=== PATIENT | female | born 1980 | race Caucasian/White ===

== ENCOUNTER 2022-01-12 09:07 | Outpatient (REF) | payer OTHER, SELFPAY ==
[2022-01-15 14:45] LABS: HPV mRNA E6/E7 rflx Not Detected (Not Detected)
== END 2022-01-12 09:08 | disposition home or self-care (01) ==
LOC: HO.LAB 09:07
PROVIDERS: PCP Internal Medicine; Visit Provider Obstetrics & Gynecology
DX: Z01.419 Encounter for gynecological examination (general) (routine) without abnormal findings (principal); Z11.51 Encounter for screening for human papillomavirus (HPV)
CPT/HCPCS: 87624; 88142

== ENCOUNTER → 2022-02-17 12:10 | Outpatient (BNVA) | payer OTHER, SELFPAY | PROVIDERS: Visit Provider Obstetrics & Gynecology | DX: Z13.89 Encounter for screening for other disorder (principal) ==

== ENCOUNTER 2022-04-11 10:38 | Outpatient (REF) | payer OTHER, SELFPAY ==
[2022-04-11 15:17] LABS: CT PCR NOT DETECTED (Not Detect.); NG PCR NOT DETECTED (Not Detect.)
== END 2022-04-11 10:39 | disposition home or self-care (01) ==
LOC: HO.LAB 10:38
PROVIDERS: Visit Provider Obstetrics & Gynecology
DX: Z30.433 Encounter for removal and reinsertion of intrauterine contraceptive device (principal)
CPT/HCPCS: 58300; 58301; 87491; 87591

== ENCOUNTER → 2022-05-10 08:15 | Outpatient (BNVA) | payer OTHER, SELFPAY | PROVIDERS: PCP Internal Medicine; Visit Provider Obstetrics & Gynecology | DX: Z32.02 Encounter for pregnancy test, result negative (principal); Z30.431 Encounter for routine checking of intrauterine contraceptive device | CPT/HCPCS: 81025 ==

== ENCOUNTER → 2023-01-17 09:12 | Outpatient (BNVA) | payer OTHER, SELFPAY | PROVIDERS: PCP Internal Medicine; Visit Provider Obstetrics & Gynecology | DX: Z13.89 Encounter for screening for other disorder (principal) ==

== ENCOUNTER 2023-03-14 07:42 | Outpatient (REF) | payer OTHER, SELFPAY ==
--- NOTE | ~2023-03-14 | MM_ITS ---
EXAMINATION: MM SCREENING DIGITAL BREAST TOMOSYNTHESIS, BILATERAL CLINICAL INFORMATION: Screening. Asymptomatic. Prior history reduction mammoplasty. The lifetime risk of breast cancer based on the Tyrer-Cuzick Model is 13%. COMPARISON: Mammography: 01/18/2018 ([place]) TECHNIQUE: Digital breast tomosynthesis is performed in both the craniocaudal and mediolateral oblique views along with computer-aided detection (CAD). Synthesized 2D images are generated from the tomosynthesis. FINDINGS: There are scattered areas of fibroglandular density (ACR BI-RADS breast composition Category b). There are no significant masses, abnormal calcifications, or other abnormalities. Parenchymal pattern is similar to prior outside exam. No developing density or architectural abnormality. The axilla are unremarkable. MM/MM tomosynthesis screening BI IMPRESSION: No mammographic evidence of malignancy. ASSESSMENT: BI-RADS 1: Negative RECOMMENDATION: Routine annual mammography screening. This patient's information was entered into a reminder system with a target due date for their next mammogram.
== END 2023-03-14 07:43 | disposition home or self-care (01) ==
LOC: HO.MAMMO 07:42
PROVIDERS: PCP Internal Medicine; Visit Provider Obstetrics & Gynecology
DX: Z12.31 Encounter for screening mammogram for malignant neoplasm of breast (principal)
CPT/HCPCS: 77063; 77067

== ENCOUNTER 2023-07-11 09:05 | Outpatient (AMB) | payer OTHER, SELFPAY ==
[2023-07-11 09:19] VITALS: BP 122/76; BMI 49.6
--- NOTE | 2023-07-11 09:19 | MHC.OFFVIS ---
Intake Vital Signs 07/11/23 09:19 Height 5 ft 4 in Weight 288 lb 12.889 oz BMI 49.6 BP 122/76 Intake Visit Reasons: Vaginal irritation Operations Superintendent Required: No Information Interpreted: non-clinical & clinical Prestressed Concrete Laborer: Prestressed Concrete Laborer Present (Velma ALMEIDA) Accompanied by: Self / Same As Patient Allergies No Known Allergies Allergy (Verified 07/11/23 09:20) Is last menstrual period known: No (mirena) HPI HPI Comments History of Present Illness Details Patient is here today for a vaginal and external itching. She reports recent rounds of antibiotics for dental work. She tried an OTC crema, which helped a little. She also reports itching in her creases. Using Azo's daily and pH balanced soaps, rinses well and voids after intimacy. [facility] Medical History Dysplasia of cervix, low grade (ISRAEL 1) Graves disease Hypothyroid Surgical History Hx of breast reduction, elective Social History Alcohol intake: current Alcohol intake frequency: holidays/special occasions only Patient Tobacco Use Status: Never used Tobacco Gender identity: Female Female Reproductive History Menstrual Age of Menarche: 12 Review of Systems Const All systems reviewed & are unremarkable except as noted in HPI and below Physical Exam Vital Signs: Last Vital Signs BP 122/76 07/11/23 09:19 BMI result Body Mass Index 49.6 Const General: cooperative, healthy appearing and no acute distress Orientation/consciousness: patient oriented x3 GI Inspection: Yes normal to inspection and Yes other (pannus fold clear) Palpation (GI): Soft to palpation Rectal Exam - Female: visual inspection normal General: Yes bladder normal to palpation External Female Exam: normal appearance of the urethra Speculum Exam - Vagina: normal appearance of the vagina, normal palpation and normal vaginal discharge Speculum Exam - Cervix: normal appearance of the cervix and normal palpation Bimanual exam- vagina & uterus: normal bimanual exam, normal palpation, uterine size normal, bladder normal to palpation, normal palpation, uterine shape normal, non-tender and other (IUD strings present) Bimanual Exam- Adnexa, other: normal adnexae Neuro General: patient oriented x3 Assessment & Plan Assessment & Plan (1) Vaginitis: Code(s): N76.0 - Acute vaginitis Plan Discussed: Skin care. Clean with water only, no soaps, air dry, loose cotton clothes, no intimacy until well healed. Await test results. Sign up for the patient postal. Follow up prn/ annual exam. Orders: Orders CT NG by PCR Today N89.8 - Other specified noninflammatory disorders of vagina Bacterial Vaginosis Panel Today N89.8 - Other specified noninflammatory disorders of vagina Coding Level of Care Code Est Pt Level 3 (22732) Diagnoses Vaginitis N76.0
== END 2023-07-11 09:37 | disposition home or self-care (01) ==
PROVIDERS: PCP Internal Medicine; Visit Provider Advanced Practice Midwife
DX: N76.0 Acute vaginitis (principal)
CPT/HCPCS: 99213

== ENCOUNTER 2023-07-11 09:05 | Outpatient (REF) | payer OTHER, SELFPAY ==
[2023-07-11 13:36] LABS: CT PCR NOT DETECTED (Not Detect.); NG PCR NOT DETECTED (Not Detect.)
[2023-07-12 13:40] LABS: BV Int Neg Control Negative (Negative); BV Int Pos Control Positive (Positive)
== END 2023-07-11 09:06 | disposition home or self-care (01) ==
LOC: HO.LNP 09:05
PROVIDERS: PCP Internal Medicine; Visit Provider Advanced Practice Midwife
DX: N76.0 Acute vaginitis (principal)
CPT/HCPCS: 0353U; 87480; 87510; 87660

== ENCOUNTER 2024-03-07 09:50 | Outpatient (AMB) | payer OTHER, SELFPAY ==
--- NOTE | 2024-03-07 09:59 | MHC.OFFVIS ---
Vital Signs 03/07/24 10:03 Height 5 ft 4 in Weight 260 lb BMI 44.6 BP 122/74 Intake Visit Reasons: RN X RAY annual exam/DO NOT RS Intake Note: painful intercourse German Teacher Required: No Information Interpreted: non-clinical & clinical Senior Instructor: Senior Instructor Present (Velma Sarkar JUAN PABLO) Accompanied by: Self / Same As Patient Allergies No Known Allergies Allergy (Verified 03/07/24 10:04) Is last menstrual period known: No (mirena) HPI Comments Details: Presenting for annual exam. Complaining of right-sided dyspareunia on and off no associated urinary or GI symptoms , no vaginal discharge Last Pap/HPV was negative in 01/07 preceded by ISRAEL 1 in 2020 Last Mammogram was BI-RADS 1 in 03/10 [facility] Medical History Dysplasia of cervix, low grade (ISRAEL 1) Hypothyroid Graves disease Surgical History Hx of breast reduction, elective Family History Father Diabetes Stroke Mother COVID Other HTN (hypertension) Social History Household Members: Spouse and Children Housing: House Alcohol intake: current Alcohol intake frequency: holidays/special occasions only Patient Tobacco Use Status: Never used Tobacco Current occupational status: employed Current occupation: Resepcionist Sexual orientation: Straight/Heterosexual Gender identity: Female Female Reproductive History Menstrual Age of Menarche: 12 control method: progestin IUCD Total pregnancies: 4 Full term: 2 Number of Living Children: 2 Ab induced: 1 Ab spontaneous: 1 Date of last pap smear: 01/13/22 Date of Mammogram: 03/14/23 Review of Systems Const All systems reviewed & are unremarkable except as noted in HPI and below Card Reports as per HPI Resp Reports as per HPI GI Reports as per HPI and Reports no additional complaints Reports as per HPI Physical Exam Vital Signs: Last Vital Signs BP 122/74 03/07/24 10:03 BMI result Body Mass Index 44.6 Const General: cooperative, healthy appearing and comfortable Chest Chest palpation & inspection: normal inspection of the chest and normal palpation of entire chest wall Breast/axilla inspection: normal inspection of the breasts and normal inspection of the axillae Breast/axilla palpation: normal palpation of the breasts, normal palpation of the axillae and no axillary lymphadenopathy Resp Effort & Inspection: normal respiratory effort Auscultation: clear to auscultation bilaterally Percussion: percussion normal Cardio Palpation: normal PMI Rate: regular rate Rhythm: regular rhythm Heart sounds: no murmurs and no rubs Peripheral pulses: Peripheral pulses 2+ throughout GI Inspection: Yes normal to inspection Palpation (GI): Soft to palpation, nontender, no guarding, not rigid and No hepatosplenomegaly present Percussion: Yes normal to percussion Auscultation: normal bowel sounds Rectal Exam - Female: deferred General: Yes bladder normal to palpation External Female Exam: No lesion Speculum Exam - Vagina: normal appearance of the vagina, normal palpation, normal vaginal discharge and not erythematous Speculum Exam - Cervix: normal appearance of the cervix and normal palpation Bimanual exam- vagina & uterus: normal bimanual exam, normal palpation, uterine size normal, bladder normal to palpation, consistency normal and normal palpation Bimanual Exam- Adnexa, other: normal adnexae, no masses and no tenderness Results AMB Test Urine AMB Test Urine Negative Last Edit by Velma Sarkar CMA on 03/07/24 10:42 Assessment & Plan Assessment & Plan (1) Well woman exam: Comment: 2020 ISRAEL 1 followed by negative co testing 01/07 Code(s): Z01.419 - Encounter for gynecological examination (general) (routine) without abnormal findings Category: Medical Plan: Cotesting not indicated this year. Mammogram scheduled on 03/26/2024. Counseled the patient about the recommended dietary allowance of 1000 mg of Calcium & 600 IU of vitamin D. The patient was instructed to perform monthly self-breast exams and to schedule an annual exam in a year; All questions answered and the patient verbalized understanding. Instructed the patient to schedule annual exam in a year (2) Dyspareunia, female: Code(s): N94.10 - Unspecified dyspareunia Category: Medical Plan: Urine dip and test done in the office was negative. GC/CT with BV panel collected, ultrasound ordered. Instructions given the patient to schedule an ultrasound follow-up appointment within 2 weeks. Orders: Orders CT NG by PCR Today Z01.419 - Encounter for gynecological examination (general) (routine) without abnormal findings AMB Urinalysis Dipstick Today R10.2 - Pelvic and perineal pain Bacterial Vaginosis Panel Today Z01.419 - Encounter for gynecological examination (general) (routine) without abnormal findings AMB HCG Urine Test Today Z32.02 - Encounter for test, result negative Coding Level of Care Code Est Pt Prev Care 40-64y(95112) Diagnoses Well woman exam Z01.419 Dyspareunia, female N94.10
[2024-03-07 10:03] VITALS: BP 122/74; BMI 44.6
== END 2024-03-07 11:07 | disposition home or self-care (01) ==
PROVIDERS: Visit Provider Obstetrics & Gynecology
DX: Z01.419 Encounter for gynecological examination (general) (routine) without abnormal findings (principal); N94.10 Unspecified dyspareunia; R10.2 Pelvic and perineal pain; Z32.02 Encounter for pregnancy test, result negative
CPT/HCPCS: 99396

== ENCOUNTER 2024-03-07 09:50 | Outpatient (REF) | payer OTHER, SELFPAY ==
[2024-03-07 17:49] LABS: Bacterial Vaginosis PCR NEGATIVE (Negative); Candida Group PCR DETECTED (Not Detect); Candida glab krusei PCR NOT DETECTED (Not Detect); Trichomonas vaginalis PCR NOT DETECTED (Not Detect)
[2024-03-07 18:31] LABS: CT PCR NOT DETECTED (Not Detect.); NG PCR NOT DETECTED (Not Detect.)
== END 2024-03-07 09:51 | disposition home or self-care (01) ==
LOC: HO.LNP 09:50
PROVIDERS: Visit Provider Obstetrics & Gynecology
DX: Z32.02 Encounter for pregnancy test, result negative (principal); N94.10 Unspecified dyspareunia; R10.2 Pelvic and perineal pain
CPT/HCPCS: 0352U; 0353U; 81002; 81025

== ENCOUNTER 2024-03-26 07:26 | Outpatient (REF) | payer OTHER, SELFPAY | END 2024-03-26 07:27 | disposition home or self-care (01) | LOC: HO.MAMMO 07:26 | PROVIDERS: PCP Internal Medicine; Visit Provider Internal Medicine | DX: Z12.31 Encounter for screening mammogram for malignant neoplasm of breast (principal) | CPT/HCPCS: 77063; 77067 ==

== ENCOUNTER → 2024-03-26 07:30 | Outpatient (BNV) | payer OTHER, SELFPAY | PROVIDERS: PCP Internal Medicine; Visit Provider Radiology Diagnostic Radiology | DX: Z12.31 Encounter for screening mammogram for malignant neoplasm of breast (principal) | CPT/HCPCS: 77063; 77067 ==

== ENCOUNTER 2024-03-26 13:12 | Outpatient (REF) | payer OTHER, SELFPAY ==
--- NOTE | ~2024-03-26 | US_ITS ---
EXAMINATION: US PELVIS CLINICAL INFORMATION: Pelvic pain, right lower quadrant pain, unknown last menstrual period, IUD. COMPARISON: None available. TECHNIQUE: Ultrasound of the pelvis is performed using both transabdominal and transvaginal transducers along with Doppler. Transvaginal imaging is performed due to inadequate visualization transabdominally. FINDINGS: Uterus is anteverted and measures 7.1 x 3.0 cm. This exam is inadequate for evaluating IUD position as the IUD is poorly visualized due to uterine positioning and bowel gas. Limited visualization of the endometrium. Imaged segment of the endometrium with thickness of 0.3 cm. No significant free fluid. Nabothian cysts. Trace amount of fluid within the cervix. Right ovary measures 4.4 x 1.8 x 1.3 cm, volume 5.4 mm and is unremarkable. Left ovary measures 3.2 x 2.1 x 2.7 cm, volume 90.5 mL. Multiple left ovarian cysts, largest 1.7 cm, are likely physiologic. There is no specific indication for additional imaging at this time. US/US pelvic and transvaginal IMPRESSION: 1. IUD is poorly visualized due to uterine positioning and bowel gas. 2. Limited visualization of the endometrium. Imaged segment of the endometrium with thickness of 0.3 cm. 3. Multiple left ovarian cysts, largest 1.7 cm, are likely physiologic. There is no specific indication for additional imaging at this time.
== END 2024-03-26 13:13 | disposition home or self-care (01) ==
LOC: HO.US 13:12
PROVIDERS: PCP Internal Medicine; Visit Provider Obstetrics & Gynecology
DX: R10.2 Pelvic and perineal pain (principal)
CPT/HCPCS: 76830; 76856

== ENCOUNTER 2024-06-13 09:32 | Outpatient (AMB) | payer OTHER, SELFPAY ==
--- NOTE | 2024-06-13 09:45 | MHC.OFFVIS ---
Vital Signs 06/13/24 09:46 Height 5 ft 4 in Weight 257 lb 15.053 oz BMI 44.3 Intake Visit Reasons: Ultra sound follow up Allergies No Known Allergies Allergy (Verified 03/07/24 10:04) HPI Comments Details: Presenting for follow-up regarding her pelvic pain. The patient is doing well. The following workup was done so far: GC/CT negative. Last visit urine test was negative. Last visit urine dip. Pelvic ultrasound showed the following: Uterus is anteverted and measures 7.1 x 3.0 cm. This exam is inadequate for evaluating IUD position as the IUD is poorly visualized due to uterine positioning and bowel gas. Limited visualization of the endometrium. Imaged segment of the endometrium with thickness of 0.3 cm. No significant free fluid. Nabothian cysts. Trace amount of fluid within the cervix. Right ovary measures 4.4 x 1.8 x 1.3 cm, volume 5.4 mm and is unremarkable. Left ovary measures 3.2 x 2.1 x 2.7 cm, volume 90.5 mL. Multiple left ovarian cysts, largest 1.7 cm, are likely physiologic. There is no specific indication for additional imaging at this time. [facility] Medical History Dysplasia of cervix, low grade (ISRAEL 1) Hypothyroid Graves disease Surgical History Hx of breast reduction, elective Family History Father Diabetes Stroke Mother COVID Other HTN (hypertension) Social History Household Members: Spouse and Children Housing: House Alcohol intake: current Alcohol intake frequency: holidays/special occasions only Patient Tobacco Use Status: Never used Tobacco Current occupational status: employed Current occupation: Resepcionist Sexual orientation: Straight/Heterosexual Gender identity: Female Female Reproductive History Menstrual Age of Menarche: 12 Review of Systems Const All systems reviewed & are unremarkable except as noted in HPI and below Reports as per HPI and Reports no additional complaints GI Reports no additional complaints Reports no additional complaints Physical Exam Vital Signs: BMI result Body Mass Index 44.3 Assessment & Plan Assessment & Plan (1) Dyspareunia, female: Code(s): N94.10 - Unspecified dyspareunia Category: Medical Plan: Discussed with the patient the results of the ultrasound showing poor visualization of IUD position and endometrium, recommended repeat pelvic ultrasound to confirm appropriate IUD positioned in the endometrial cavity and no evidence of any other pathology. Pelvic ultrasound ordered. Instructions given the patient to schedule an ultrasound and a follow-up appointment. All questions answered, the patient verbalized understanding Orders: Orders US pelvic and transvaginal Today N94.10 - Unspecified dyspareunia Coding Level of Care Code Est Pt Level 3 (84932) Diagnoses Dyspareunia, female N94.10
[2024-06-13 09:46] VITALS: BMI 44.3
== END 2024-06-13 09:52 | disposition home or self-care (01) ==
LOC: HO.HWS 09:32
PROVIDERS: PCP Internal Medicine; Visit Provider Obstetrics & Gynecology
DX: N94.10 Unspecified dyspareunia (principal)
CPT/HCPCS: 99213

== ENCOUNTER → 2024-06-13 09:32 | Outpatient (BNVA) | payer OTHER, SELFPAY | PROVIDERS: PCP Internal Medicine; Visit Provider Obstetrics & Gynecology ==

== ENCOUNTER 2024-06-19 14:06 | Outpatient (REF) | payer OTHER, SELFPAY ==
--- NOTE | ~2024-06-19 | US_ITS ---
EXAMINATION:US PELVIS TRANSABDOMINAL AND TRANSVAGINAL CLINICAL INFORMATION: N94.10 - Unspecified dyspareunia COMPARISON: No priors available. LMP: IUD FINDINGS: UTERUS: The uterus is anteverted. Size: 7.7 x 3.6 x 5.1 cm. Uterine mass: There is no uterine mass. Cervix: There are nabothian cysts otherwise Grossly unremarkable. Endometrium: No ultrasound evidence of endometrial lesion. endometrial thickness measures 0.25 cm there is an IUD in place. might have been displaced, with its stump perforating the myometrium raising concern for malpositioning. Difficult to visualize, could not obtain 3-D image. ADNEXA: Normal Right ovary: Normal in size. Left ovary: Normal in size. Doppler exam: Normal Doppler flow identified in both ovaries. FREE FLUID: Trace amount of free fluid. OTHER FINDINGS: None US/US pelvic and transvaginal IMPRESSION: * There is an IUD in place, might have been displaced, with its arms appear to be perforating into the myometrium raising concern for malpositioning. Difficult to visualize, could not obtain 3-D image. Recommend WELDING SYSTEMS AND EQUIPMENT REPAIRER evaluation, consider replacement and/or correlation with follow-up cross-sectional imaging, if not performed follow-up ultrasound in 6 weeks for reassessment. * Exam otherwise normal. Electronically signed by: Antonio Veronica MD 06/19/2024 05:02 PM EDT
== END 2024-06-19 14:07 | disposition home or self-care (01) ==
LOC: HO.HMGCX 14:06
PROVIDERS: PCP Internal Medicine; Visit Provider Obstetrics & Gynecology
DX: N94.10 Unspecified dyspareunia (principal)
CPT/HCPCS: 76830; 76856

== ENCOUNTER 2024-06-25 09:44 | Outpatient (AMB) | payer OTHER, SELFPAY ==
--- NOTE | 2024-06-25 09:45 | MHC.OFFVIS ---
Vital Signs 06/25/24 09:55 Height 5 ft 4 in Weight 257 lb 15.053 oz BMI 44.3 Intake Visit Reasons: Mirena removal and insertion Supervising Bailiff Required: No Information Interpreted: non-clinical & clinical Facility Attendant: Facility Attendant Present (Velma ALMEIDA) Accompanied by: Self / Same As Patient Allergies No Known Allergies Allergy (Verified 06/25/24 10:03) Is last menstrual period known: No (mirena) HPI Comments Details: Presenting for ultrasound follow-up which showed the following: IMPRESSION: * There is an IUD in place, might have been displaced, with its arms appear to be perforating into the myometrium raising concern for malpositioning. Difficult to visualize, could not obtain 3-D image. Recommend AVIONICS SYSTEMS ENGINEER evaluation, consider replacement and/or correlation with follow-up cross-sectional imaging, if not performed follow-up ultrasound in 6 weeks for reassessment. * Exam otherwise normal. [facility] Medical History Dysplasia of cervix, low grade (ISRAEL 1) Hypothyroid Graves disease Surgical History Hx of breast reduction, elective Family History Father Diabetes Stroke Mother COVID Other HTN (hypertension) Social History Household Members: Spouse and Children Housing: House Alcohol intake: current Alcohol intake frequency: holidays/special occasions only Patient Tobacco Use Status: Never used Tobacco Current occupational status: employed Current occupation: Resepcionist Sexual orientation: Straight/Heterosexual Gender identity: Female Female Reproductive History Menstrual Age of Menarche: 12 Review of Systems Const All systems reviewed & are unremarkable except as noted in HPI and below Physical Exam Vital Signs: BMI result Body Mass Index 44.3 General: Yes no CVA tenderness External Female Exam: normal external appearance and normal appearance of the urethra Speculum Exam - Vagina: normal appearance of the vagina, normal palpation, no lesions and no masses Speculum Exam - Cervix: normal appearance of the cervix, normal palpation, no lesions, no masses, nontender and Other cervical findings present (IUD thread in place) Bimanual exam- vagina & uterus: normal bimanual exam, normal palpation, uterine size normal, normal palpation, uterine shape normal, No Cervical tenderness present and non-tender Bimanual Exam- Adnexa, other: normal adnexae Back/Spine/Pelvis Back: no CVA tenderness Office Procedures IUD Insert/Removal Details Details: The patient is presenting for IUD removal and IUD reinsertion. Her last menstrual period was within the last 5 days, Urine test was done in the office and was negative; All the contraindications were excluded. The following possible complications were discussed with the patient: Intrauterine , Ectopic , Sepsis, Pelvic Infection, Irregular Bleeding and Amenorrhea, Perforation, Expulsion, Ovarian Cysts, Breast Cancer. The following adverse effects were discussed with the patient: alteration of menstrual bleeding pattern, including: unscheduled uterine bleeding decreased uterine bleeding increased scheduled uterine bleeding female genital tract bleeding ,amenorrhea , genital discharge , vulvovaginitis , breast pain , benign ovarian cyst and associated complications , dysmenorrhea , Gastrointestinal disorders abdominal/pelvic pain, headache/migraine , back pain , acne , depression Alternative options were discussed with the patient including but not limited: control pills, patch, NuvaRing, Depo-medroxyprogesterone acetate, Nexplanon, copper IUD, sterilization, vasectomy, others The procedure was explained in detail to patient , at the end patient signed the informed consent obtained. Alternative options were discussed with the patient The patient signed the consent and agreed with the plan; all questions answered. Urine test was done in the office and was negative Preop dx: Requesting IUD removal and Reinsertion Op: IUD removal and Mirena insertion Post op dx: same EBL= 10 cc Procedure: The patient was put in the dorsal lithotomy position a speculum was inserted in the vagina the IUD thread identified. Using a Andie clamp the thread was grasped and the IUD pulled out with no complications. A no touch technique was used throughout the procedure. A speculum was placed into vagina and cervix was cleaned with betadine). A tenaculum was placed. A plastic sound was advanced through the external and internal os until it reached the fundus of the uterus, the depth was 8 cm. The sound was then withdrawn. The IUD was loaded in a sterile manner and advanced into position. The string was visualized and cut to 3 cm. Tenaculum site hemostatic. All instruments removed from vagina. Patient tolerated the procedure well. NO complications were noted. Patient was instructed to call for fever over 100.4, significant pain unrelieved by Motrin, IUD expulsion, heavy bleeding, or abnormal discharge. In addition, the following clinical considerations were discussed with the patient to call for removal: A stroke or heart attack ,Very severe or migraine headaches ,Unexplained fever ,Yellowing of the skin or whites of the eyes, as these may be signs of serious liver problems , or suspected , Pelvic pain or pain during sex ,HIV positive seroconversion in herself or her partner , Possible exposure to sexually transmitted infections Unusual vaginal discharge or genital sores , severe vaginal bleeding or bleeding that lasts a long time, or if she misses a menstrual period, Inability to feel Mirena's threads Counseled the patient that the IUD does not protect against STI's, recommended use of condoms for the first 7 days post insertion and explained to the patient that condoms are recommended for patients at risk for sexually transmitted infections. Follow up appointment made for 4 weeks following insertion. Date of removal in no more than five years for DUB treatment and 8 years for contraception from today?s date was d/w patient. This note was generated with a voice recognition program. Some errors may have been overlooked during the review of this note. Sometimes these errors may affect the content or meaning of a given sentence. 07839-BPA Insertion 36135-LCW Removal Procedure code (CPT) selection complete IUD Insert/Removal Details Details: The patient is presenting for IUD removal and IUD reinsertion. Her last menstrual period was within the last 5 days, Urine test was done in the office and was negative; All the contraindications were excluded. The following possible complications were discussed with the patient: Intrauterine , Ectopic , Sepsis, Pelvic Infection, Irregular Bleeding and Amenorrhea, Perforation, Expulsion, Ovarian Cysts, Breast Cancer. The following adverse effects were discussed with the patient: alteration of menstrual bleeding pattern, including: unscheduled uterine bleeding decreased uterine bleeding increased scheduled uterine bleeding female genital tract bleeding ,amenorrhea , genital discharge , vulvovaginitis , breast pain , benign ovarian cyst and associated complications , dysmenorrhea , Gastrointestinal disorders abdominal/pelvic pain, headache/migraine , back pain , acne , depression Alternative options were discussed with the patient including but not limited: control pills, patch, NuvaRing, Depo-medroxyprogesterone acetate, Nexplanon, copper IUD, sterilization, vasectomy, others The procedure was explained in detail to patient , at the end patient signed the informed consent obtained. Alternative options were discussed with the patient The patient signed the consent and agreed with the plan; all questions answered. Urine test was done in the office and was negative Preop dx: Requesting IUD removal and Reinsertion Op: IUD removal and Mirena insertion Post op dx: same EBL= 10 cc Procedure: The patient was put in the dorsal lithotomy position a speculum was inserted in the vagina the IUD thread identified. Using a Andie clamp the thread was grasped and the IUD pulled out with no complications. A no touch technique was used throughout the procedure. A speculum was placed into vagina and cervix was cleaned with betadine). A tenaculum was placed. A plastic sound was advanced through the external and internal os until it reached the fundus of the uterus, the depth was 8 cm. The sound was then withdrawn. The IUD was loaded in a sterile manner and advanced into position. The string was visualized and cut to 3 cm. Tenaculum site hemostatic. All instruments removed from vagina. Patient tolerated the procedure well. NO complications were noted. Patient was instructed to call for fever over 100.4, significant pain unrelieved by Motrin, IUD expulsion, heavy bleeding, or abnormal discharge. In addition, the following clinical considerations were discussed with the patient to call for removal: A stroke or heart attack ,Very severe or migraine headaches ,Unexplained fever ,Yellowing of the skin or whites of the eyes, as these may be signs of serious liver problems , or suspected , Pelvic pain or pain during sex ,HIV positive seroconversion in herself or her partner , Possible exposure to sexually transmitted infections Unusual vaginal discharge or genital sores , severe vaginal bleeding or bleeding that lasts a long time, or if she misses a menstrual period, Inability to feel Mirena's threads Counseled the patient that the IUD does not protect against STI's, recommended use of condoms for the first 7 days post insertion and explained to the patient that condoms are recommended for patients at risk for sexually transmitted infections. Follow up appointment made for 4 weeks following insertion. Date of removal in no more than five years for DUB treatment and 8 years for contraception from today?s date was d/w patient. This note was generated with a voice recognition program. Some errors may have been overlooked during the review of this note. Sometimes these errors may affect the content or meaning of a given sentence. 50511-XBJ Insertion 04962-YQY Removal Procedure code (CPT) selection complete Office Meds ParaGard T 380A 380 square mm intrauterine device Performing Provider: Abdullahi Ross MD Performing Location: [facility] [place] [facility] Documented (not given) by: Abdullahi Ross MD on 06/25/24 10:17 Reason Not Given: Not Medically Necessary Mirena 21 mcg/24 hr (up to 8 years) 52 mg intrauterine device Performing Provider: Abdullahi Ross MD Performing Location: [facility] [place] [facility] Administered by: Abdullahi Ross MD on 06/25/24 10:27 Dose Route Admin Location Dispensed Lot Number Expiration Date NDC Shirt Cleaner 1 device intrauterine 1 ea Results AMB Test Urine AMB Test Urine Negative Last Edit by Velma Sarkar CMA on 06/25/24 10:03 Results Reviewed Results Reviewed: Laboratory Last Values [facility] Clinic Negative 06/25/24 10:02 Assessment & Plan Assessment & Plan (1) Malpositioned IUD: Code(s): T83.32XA - Displacement of intrauterine contraceptive device, initial encounter Category: Medical Plan: Discussed with the patient the results the ultrasound showing well-positioned IUD, recommended IUD removal/reinsertion. All questions answered, the patient verbalized understanding agreed with the plan (2) Remove/insert IUD: Code(s): Z30.433 - Encounter for removal and reinsertion of intrauterine contraceptive device Category: Medical Plan: IUD removed/Mirena IUD reinserted, see procedure note Orders: Orders AMB HCG Urine Test Today Z32.02 - Encounter for test, result negative AMB IUD Insertion/Removal - Practice Supplied Today Z30.433 - Encounter for removal and reinsertion of intrauterine contraceptive device AMB IUD Insertion/Removal - Practice Supplied Today Z30.433 - Encounter for removal and reinsertion of intrauterine contraceptive device CT NG by PCR Today Z30.433 - Encounter for removal and reinsertion of intrauterine contraceptive device Medications: New ParaGard T 380A (copper) 1 device intrauterine ONCE 1 ea 0RF NS Z30.433 - Encounter for removal and reinsertion of intrauterine contraceptive device Mirena (levonorgestrel) 1 device intrauterine ONCE 1 ea 0RF IUD removal/insertion NS Z30.433 - Encounter for removal and reinsertion of intrauterine contraceptive device Coding Level of Care Code Procedure Only Diagnoses Malpositioned IUD T83.32XA Remove/insert IUD Z30.433 CPT Codes Details - CPT: 33189-HPX Insertion ([id number]) Details - CPT: 65444-JIJ Removal ([id number]) Details - CPT: 30906-PSE Insertion ([id number]) Details - CPT: 25294-CMS Removal ([id number]) Comment Mirena IUD reinserted not ParaGard, ParaGard was entered in error
[2024-06-25 09:55] VITALS: BMI 44.3
== END 2024-06-25 10:25 | disposition home or self-care (01) ==
PROVIDERS: PCP Internal Medicine; Visit Provider Obstetrics & Gynecology
DX: T83.32XA Displacement of intrauterine contraceptive device, initial encounter (principal); Z30.433 Encounter for removal and reinsertion of intrauterine contraceptive device; Z32.02 Encounter for pregnancy test, result negative
CPT/HCPCS: 58300; 58301

== ENCOUNTER 2024-06-25 09:44 | Outpatient (REF) | payer OTHER, SELFPAY ==
[2024-06-26 11:20] LABS: CT PCR NOT DETECTED (Not Detect.); NG PCR NOT DETECTED (Not Detect.)
== END 2024-06-25 09:45 | disposition home or self-care (01) ==
LOC: HO.LNP 09:44
PROVIDERS: PCP Internal Medicine; Visit Provider Obstetrics & Gynecology
DX: Z30.433 Encounter for removal and reinsertion of intrauterine contraceptive device (principal); T83.32XA Displacement of intrauterine contraceptive device, initial encounter
CPT/HCPCS: 58300; 58301; 81025; 87491; 87591; J7298

== ENCOUNTER → 2024-08-05 13:37 | Outpatient (BNVA) | payer OTHER, SELFPAY | PROVIDERS: PCP Internal Medicine; Visit Provider Obstetrics & Gynecology ==

== ENCOUNTER 2024-08-13 08:14 | Outpatient (AMB) | payer OTHER, SELFPAY ==
[2024-08-13 08:19] VITALS: BP 122/70
--- NOTE | 2024-08-13 08:19 | A.OFFVIS_ITS ---
Vital Signs 08/13/24 08:19 Height 5 ft 4 in BP 122/70 Intake Visit Reasons: 6 week IUD check Urban Sociologist Required: No Digital Forensics Examiner: Digital Forensics Examiner Present (Eloisa) Allergies No Known Allergies Allergy (Verified 08/13/24 08:21) Post menopausal: No Patient : No HPI Comments Details: The patient is presenting for IUD check after 1 st period following IUD insertion. The patient has no complaints periods are normal, not painful, and flow is normal. The patient is checking the IUD thread periodically. [facility] Medical History Dysplasia of cervix, low grade ([place] 1) Hypothyroid Graves disease Surgical History Hx of breast reduction, elective Family History Father Diabetes Stroke Mother COVID Other HTN (hypertension) Social History Household Members: Spouse and Children Housing: House Alcohol intake: current Alcohol intake frequency: holidays/special occasions only Patient Tobacco Use Status: Never used Tobacco Patient : No Current occupational status: employed Current occupation: Resepcionist Sexual orientation: Straight/Heterosexual Gender identity: Female Female Reproductive History Menstrual Age of Menarche: 12 control method: progestin IUCD Review of Systems Const All systems reviewed & are unremarkable except as noted in HPI and below Physical Exam Vital Signs: Last Vital Signs BP 122/70 08/13/24 08:19 General: Yes no CVA tenderness External Female Exam: normal external appearance and normal appearance of the urethra Speculum Exam - Vagina: normal appearance of the vagina, normal palpation, no lesions and no masses Speculum Exam - Cervix: normal appearance of the cervix, normal palpation, no lesions, no masses, nontender and Other cervical findings present (IUD string in place) Bimanual exam- vagina & uterus: normal bimanual exam, normal palpation, uterine size normal, normal palpation, uterine shape normal, No Cervical tenderness present and non-tender Bimanual Exam- Adnexa, other: normal adnexae Back/Spine/Pelvis Back: no CVA tenderness Results AMB Test Urine AMB Test Urine Negative Last Edit by Velma Sarkar CMA on 08:24 Results Reviewed Results Reviewed: Laboratory Last Values Tst Clinic Negative 08/13/24 08:24 Assessment & Plan Assessment & Plan (1) IUD check up: Code(s): Z30.431 - Encounter for routine checking of intrauterine contraceptive device Category: Medical Plan: UPT done in the office was negative. Discussed with the patient the finding on physical exam, IUD string in place, the patient was reassured. Instructions given to patient to call in case of temperature above 100.4, severe cramping/pelvic pain, abnormal discharge or abnormal uterine bleeding or if she misses her menstrual cycle. Otherwise follow-up at her annual exam appointment. All questions answered, the patient verbalized understanding. Orders: Orders AMB HCG Urine Test Today Z32.02 - Encounter for test, result negative Coding Level of Care Code Est Pt Level 3 (72722) Diagnoses IUD check up Z30.431
== END 2024-08-13 08:31 | disposition home or self-care (01) ==
PROVIDERS: PCP Internal Medicine; Visit Provider Obstetrics & Gynecology
DX: Z30.431 Encounter for routine checking of intrauterine contraceptive device (principal); Z32.02 Encounter for pregnancy test, result negative
CPT/HCPCS: 99213

== ENCOUNTER → 2024-08-13 08:14 | Outpatient (BNVA) | payer OTHER, SELFPAY | PROVIDERS: PCP Internal Medicine; Visit Provider Obstetrics & Gynecology | DX: Z30.431 Encounter for routine checking of intrauterine contraceptive device (principal) | CPT/HCPCS: 81025 ==

== ENCOUNTER 2025-05-07 10:54 | Outpatient (AMB) | payer OTHER, SELFPAY ==
--- OUTSIDE RECORDS SUMMARY | 2024-03-26 09:00 | XMS_ITS ---
Author Organization [facility] [address] Address [address] [place] [address] Care Team Providers Care Order Administrator Name Role Phone ARACELI COTTER Unavailable [phone] Palak Thakur Unavailable [phone] Encounters Encounter Location Date Provider Diagnosis [facility] [phone] [address] 03/26/2024 Palak Thakur Plan Of Treatment No Information Progress Notes * MADHAVBlayne CaneladiliaDOB:1980 (44 yo F)Acc No.[id number]:03/26/2024 Patient: Elisabeth COLO Provider: Jayro Thakur PA-C :1980 A ge:43 Y S ex:Female Date:03/26/2024 Address:[address] [place], [place] [phone] Subjective: * Chief Complaints: * * Medical History: Objective: * Vitals: Assessment: Plan: * Treatment: * Images: Billing Information: * Visit Code: * Procedure Codes: * Electronic signature of Palak Thakur PA-C on 05/07/2025 at 12:14 PM EDT Sign off status: Pending * Provider: Jayro Thakur PA-C Date: 03/26/2024 Generated for Levar mcdowell/Romy/eTransmitting on: 05/07/2025 12:14 PM EDT
--- NOTE | 2025-05-07 10:59 | MHC.OFFVIS ---
Intake Visit Reasons: vaginal discharge Allergies No Known Allergies Allergy (Verified 08/13/24 08:21) HPI Comments Details: Presenting complaining of vulvovaginal itching associated vaginal discharge odor and urinary frequency. The patient went to by urgent care had a urine dip and urine culture the were negative according to the patient, no records available [facility] Medical History Dysplasia of cervix, low grade ([place]RA[place] 1) Hypothyroid Graves disease Surgical History Hx of breast reduction, elective Family History Father Diabetes Stroke Mother COVID Other HTN (hypertension) Social History Household Members: Spouse and Children Housing: House Alcohol intake: current Alcohol intake frequency: holidays/special occasions only Patient Tobacco Use Status: Never used Tobacco Current occupational status: employed Current occupation: Resepcionist Sexual orientation: Straight/Heterosexual Gender identity: Female Female Reproductive History Menstrual Age of Menarche: 12 Assessment & Plan Assessment & Plan (1) Vulvovaginitis: Code(s): N76.0 - Acute vaginitis Category: Medical Plan: GC/CT, Bacterial Vaginosis panel taken, Terazol 0.8% q.h.s. for 3 days was sent to the patient's pharmacy. The patient was instructed to call if symptoms don't improve in 48 hours. Medications: New terconazole 0.8% 1 appful vaginal BEDTIME 20 grams 0RF 3 days Coding Level of Care Code Est Pt Level 3 (79118) Diagnoses Vulvovaginitis N76.0
--- OUTSIDE RECORDS SUMMARY | 2025-05-07 12:14 | XMS_ITS | Encounter Summary ---
Author Organization [employer] Address [address] [place] [address] [place] [address] Care Team Providers Care Wound Care Nurse Name Role Phone Unavailable Primary Care Provider Unavailabl e Reason for Visit * Reason Onset Date Comments pain numbness 10/03/2023 Encounter Details Date Type Department Care Team ([facility] st Contact Info) Description 10/03/2023 Telephone [facility] [address] [place] [address] Parth Mendoza, DDS [address] [place] [address] pain numbness Social History Tobacco Use Types Packs/Day Years Used Date Smoking Tobacco: Never Smokeless Tobacco: Never Alcohol Use Standard Drinks/Week Comments Defer 0 (1 standard drink = 0.6 oz pur e alcohol) Comments No Sex and Gender Information Value Date Recorded Sex Assigned at Female 07/18/2022 10:18 AM EDT Legal Sex Female 10:18 AM EDT Gender Identity Female 03/14/2023 8:46 AM EDT Sexual Orientation Straight 03/14/2023 8: 46 AM EDT documented as of this encounter Miscellaneous Notes * Telephone Encounter - Virgen Hoskins - 10/03/2023 12:46 PM EST Patient is stating that she has pain and numbness in the area that she had work done on 09/22. She let it go for a little bit because she thought it was normal to have discomfort but it has gone on for a while now and is now affecting her jawline. No emergency visits avl. She stated she would like a follow up call and she is also planning on stopping in the morning to see if she can get on later i n the day. documented in this encounter Plan of Treatment Not on file documented as of this encounter Visit Diagnoses Not on filedocumented in this encounter
--- OUTSIDE RECORDS SUMMARY | 2025-05-07 12:15 | XMS_ITS ---
Author Name [facility] Organization Unknown Care Team Organization Name Specialty Phone Email Start Date End Da te [facility] Kriss Cherry Primary Care 04/04/2024 4 [facility] Kriss Cherry Primary Care 08/30/2023 4 [facility] Selena Clark Primary Care 06/21/2023 024
--- OUTSIDE RECORDS SUMMARY | 2025-05-07 12:15 | XMS_ITS | Patient Health Record ---
Author Organization [facility] Address [address] [place] [address] Care Team Providers Care Preparation Plant Supervisor Name Role Phone Selena Clark Primary Care Provider Abdullahi Cerspo [phone] Allergies No Known Allergies Reason For Referral No Information Medications Medication SIG (Take, Route, Frequency, Duration) Notes Start Date End Date Status Diclofenac Sodium 75 MG 1 tablet with fo od Orally Twice a day; Duration: 30 days 10/15/2024 Active Levothyroxine Sodium 175 MCG 1 tablet in the morning on an empty stomach Orally Once a day Active Social History Tobacco Use: Social History Observation Description Date Details (start date - stop date) Never Smoker NA - NA Tobacco use other than smoking: Question Answer Notes Are you an other tobacco user? No Tobacco Control (Standard) Question Answer Notes Tobacco use: Nonsmoker Additional Findings: Tobacco non-user Current no nsmoker AUDIT-C (Standard) Question Answer Notes Did you have a drink contain ing alcohol in the past year? Yes How often did you have six o r more drinks on one occasion in the past year? Declined to specify (0 point) How many drinks did you have on a typical day when you were drinking in the past year? Declined to specify (0 point) How often did you have a dri nk containing alcohol in the past year? Declined to specify (0 point) Points 0 Interpretation Negative Problems Problem Type SNOMED Code ICD Code Onset Dates Problem Status W/U Status Risk Notes Problem Plantar fasciitis, bilateral (M72.2) Active confirmed Vital Signs Blood pressure diastolic 72 mm Hg 10/15/2024 Height 5ft 4in in 10/15/2024 Blood pressure systolic 126 mm Hg 10/15/2024 Weight 280 lbs 10/15/2024 BMI 48.06 kg/m2 10/15/2024 Encounters Encounter Location Date Provider Diagnosis [facility] [facility] [place] [address] 10/15/2024 Abdullahi Fountain Pain in right foot M79.671 ; Plantar fasciitis, bilateral M72.2 ; Calcaneal spur, right foot M77.31 ; Pain in left foot M79.672 and Calcaneal spur, left foot M77.[address] [facility] [address] 10/29/2024 Abdullahi Fountain Assessments Encounter Date Diagnosis (ICD Code) Assessment Notes Treatment Notes Treatment Clinical Notes Section Notes 10/15/2024 Pain in right foot (ICD-10 - M79.671) 10/15/2024 Plantar fasciitis, bilateral (ICD-10 - M72.2) Patient Educated with: HEEL CORD STRETCHES.pdf (HEEL CORD STRETCHES.pdf) Patient Educated with: RICE THERAPY.pdf (RICE THERAPY.pdf) 10/15/2024 Calcaneal spur, right foot (ICD-10 - M77.31) If pain continues possible injection of cortisone at next appointment 10/15/2024 Pain in left foot (ICD-10 - M79.672) 10/15/2024 Calcaneal spur, left foot (ICD-10 - M77.32) Plan Of Treatment Pending Test Test Name Order Date X ray : Foot, left 3V 10/15/2024 X ray : Foot, right 3V 10/15/2024 Insurance Providers Payer Name Payer Address Payer Phone Subscriber Number Group Number Insured Name Patient Relationship to Insured Coverage Start Date Coverage End Date [facility] [address] [facility] [place] [address] [phone] [id number] Elisabeth Valderrama Self - patient is the insured Medical (General) History Medical History History ICD Code Chicken pox Thyroid disorder Surgical History Surgery Date(Month/Year) breast reduction 03/24/2022
== END 2025-05-07 11:28 | disposition home or self-care (01) ==
LOC: HO.HWS 10:54
PROVIDERS: Visit Provider Obstetrics & Gynecology
DX: N76.0 Acute vaginitis (principal)
CPT/HCPCS: 99213

== ENCOUNTER 2025-05-07 10:54 | Outpatient (REF) | payer OTHER, SELFPAY ==
[2025-05-07 21:12] LABS: Bacterial Vaginosis PCR NEGATIVE (Negative); Candida Group PCR DETECTED (Not Detect); Candida glab krusei PCR NOT DETECTED (Not Detect); Trichomonas vaginalis PCR NOT DETECTED (Not Detect)
[2025-05-07 22:09] LABS: CT PCR NOT DETECTED (Not Detect.); NG PCR NOT DETECTED (Not Detect.)
== END 2025-05-07 10:55 | disposition home or self-care (01) ==
LOC: HO.LNP 10:54
PROVIDERS: Visit Provider Obstetrics & Gynecology
DX: N76.0 Acute vaginitis (principal); Z11.8 Encounter for screening for other infectious and parasitic diseases; Z11.2 Encounter for screening for other bacterial diseases; Z20.2 Contact with and (suspected) exposure to infections with a predominantly sexual mode of transmission
CPT/HCPCS: 81515; 87491; 87591